=== PATIENT | female | born 1950 | race Caucasian/White ===

== ENCOUNTER 2023-02-20 10:11 | Day surgery (SDC) | payer OTHER ==
[2023-02-13 12:03] VITALS: BMI 33.8
[2023-02-20] MEDS ORDERED: BUPIVACAINE HCL/PF 0.5% (5MG/ML) 10 ML VIAL ONE ×2 (11:07→12:47)
[2023-02-20] MEDS ORDERED: LIDOCAINE HCL 2% (20ML MULTI-DOSE VIAL) ONE ×2 (11:07→11:55)
[2023-02-20] MEDS ORDERED: MIDAZOLAM HCL 2 MG/2 ML SINGLE DOSE VIAL ONE (11:29)
[2023-02-20] MEDS ORDERED: DEXAMETHASONE SOD PHOSPHATE 4 MG/1 ML VIAL ONE (11:37)
[2023-02-20] MEDS ORDERED: ONDANSETRON 4 MG/2 ML VIAL ONE (11:37)
[2023-02-20] MEDS ORDERED: KETOROLAC TROMETHAMINE 30 MG/1 ML VIAL ONE (11:37)
[2023-02-20] MEDS ORDERED: ceFAZolin SODIUM 1 GM VIAL ONE (11:37)
[2023-02-20] MEDS ORDERED: PROPOFOL 20 ML ONE ×2 (11:38→12:08)
[2023-02-20] MEDS ORDERED: ONDANSETRON 4 MG/2 ML VIAL IVPUSH PRN (13:04)
[2023-02-20] MEDS ORDERED: LACTATED RINGERS SOLUTION 1,000 ML IV SCH (13:15)
[2023-02-20] MEDS ORDERED: ACETAMINOPHEN 500 MG TABLET (FP) PO ONE (13:21)
[2023-02-20 14:40] VITALS: TEMP 97.6
[2023-02-20 15:10] VITALS: BP 156/84; PULSE 67; RESP 19
== END 2023-02-20 15:00 | disposition home or self-care (01) ==
LOC: FASU 10:11
PROVIDERS: ATTEND Podiatrist Foot Surgery
PROC: 0QSP04Z Reposition Left Metatarsal with Internal Fixation Device, Open Approach (ICD-10-PCS; principal; 2023-02-20 11:52)
PROC: 0SG Lower Joints, Fusion (ICD-10-PCS; 2023-02-20 11:52)
DX: M20.12 Hallux valgus (acquired), left foot (principal); M20.42 Other hammer toe(s) (acquired), left foot; M24.575 Contracture, left foot
CPT/HCPCS: 73630-TC-LT; 88304-TC; 88311-TC; 94760